=== PATIENT | male | born 1950 | race Caucasian/White ===

== ENCOUNTER 2018-07-13 23:34 | Observation (INO) | payer MEDICARE ==
[~2018-07-13] VITALS: Ht 170.2 cm; Wt 103.7 kg
[2018-07-14 00:18] LABS: BASOPHILS ABSOLUTE AUTO 0.07 K/mm3 (0.00-0.23); BASOPHILS PERCENT AUTO 0 % (0-2); EOSINOPHILS ABSOLUTE AUTO 0.28 K/mm3 (0.00-0.68); EOSINOPHILS PERCENT AUTO 2 % (0-6); Hematocrit 45.4 % (37.0-53.0); Hemoglobin 14.4 g/dL (13.5-17.5); IMMATURE GRAN ABSOLUTE AUTO 0.06 K/mm3 (0.00-0.10); IMMATURE GRAN PERCENT AUTO 0 % (0-1); LYMPHOCYTES PERCENT AUTO 16 % (21-46); MONOCYTES ABSOLUTE AUTO 1.37 K/mm3 (0.16-1.47); MONOCYTES PERCENT AUTO 8 % (4-13); Mean Corpuscular HGB 29.8 pg (26.0-34.0); Mean Corpuscular HGB Conc 31.7 g/dL (31.5-36.5); Mean Corpuscular Volume 94 fL (80-100); Mean Platelet Volume 9.4 fL (9.1-12.4); NEUTROPHILS ABSOLUTE AUTO 12.01 K/mm3 (1.96-9.15); NEUTROPHILS PERCENT AUTO 73 % (41-73); Platelet Count 380 K/mm3 (150-400); RDW Coefficient Variation 13.3 % (11.7-14.2); RDW Standard Deviation 46.2 fL (35.1-46.3); Red Blood Cell Count 4.83 M/mm3 (4.30-5.90); White Blood Cell Count 16.49 K/mm3 (4.00-11.30)
[2018-07-14 00:45] LABS: Alanine Aminotransfer (ALT/SGP 25 U/L (12-78); Albumin, Blood 3.3 g/dL (3.4-5.0); Albumin/Globulin Ratio 0.8 (0.8-1.8); Alk Phos 88 U/L (50-136); Anion Gap 10 mmol/L (6-16); Aspartate Aminotrans (AST/SGOT 18 U/L (12-37); Bilirubin, Total 0.5 mg/dL (0.1-1.0); Blood Urea Nitrogen 15 mg/dL (8-24); Bun/Creatinine Ratio 18.7 (12.0-20.0); CO2, Blood 25 mmol/L (21-32); Calcium, Blood 8.8 mg/dL (8.5-10.1); Chloride, Blood 101 mmol/L (98-108); Globulin, Blood 4.4 g/dL (2.2-4.0); Glomerular Filtration Rate >60 (60-); Glucose, Blood 116 mg/dL (70-99); Potassium, Blood 3.3 mmol/L (3.5-5.5); Sodium, Blood 136 mmol/L (136-145); Total Protein, Blood 7.7 g/dL (6.4-8.2)
[2018-07-14 01:02] LABS: Source, Urine Clean Catch
[2018-07-14 01:08] LABS: Bilirubin, Urine Neg (Neg); Blood, Urine 3+ (Neg); Glucose Qualitative, Urine Neg (Neg); Ketones, Urine Neg (Neg); Leukocyte Esterase, Urine Neg (Neg); Nitrite, Urine Neg (Neg); Protein, Urine Neg (Neg); Urobilinogen, Urine NORM (Normal)
[2018-07-14 01:12] LABS: Appearance, Urine Clear (Clear); Color, Urine Yellow (P-Yellow)
[2018-07-14 01:17] LABS: Bacteria Rare /hpf; Mucus Light (0-Heavy); Red Blood Cells, Urine 0-2 /hpf (0-2); Squamous Epithelial Cells Not Seen /hpf (Few); White Blood Cells, Urine Not Seen /hpf (0-5)
[2018-07-14] MEDS ORDERED: FURO20 PO (03:16)
[2018-07-14] MEDS ORDERED: Flovent 110 MCG12 GM INH (03:16)
[2018-07-14] MEDS ORDERED: OXYM.05NI (03:16)
[2018-07-14] MEDS ORDERED: DICL75ER PO (03:16)
[2018-07-14] MEDS ORDERED: MONT10T PO (03:17)
[2018-07-14] MEDS ORDERED: ADVAIR HFA (03:17)
[2018-07-14] MEDS ORDERED: ASPI81CH PO (03:17)
[2018-07-14] MEDS ORDERED: ZYRTEC10 M1 PO (03:18)
[2018-07-14] MEDS ORDERED: METO50 PO (03:18)
[2018-07-14] MEDS ORDERED: FLUT1DIS5 INH (04:33)
--- NOTE | 2018-07-14 07:10 | NUR ---
SHIFT SUMMARY PATIENT ADMITTED EARLIER THIS SHIFT FROM THE ER. PATIENT ABLE TO TRANSFER FROM THE GURNEY TO THE BED WITH ONE PERSON ASSIST. PATIENT PLEASENT AND COOPERATIVE. PATIENT MEDICATED FOR LOWER ABD PAIN PER EMAR. PATIENT SETTLED IN AND ORIENTED TO THE UNIT, ROOM, AND CALL LIGHT. PATIENT APPEARED TO SLEEP WELL AFTER ADMIT COMPLETED. FLUIDS RUNNING PER EMAR. REPORT GIVEN TO ONCOMING RN.
--- NOTE | 2018-07-14 09:51 | NUR ---
PT GONE TO OR @ APPROX 0915 THIS MORNING.
--- NOTE | 2018-07-14 10:54 | NUR ---
07/14/18 1054 Lynn Philippe PT ON SCHEDULED ANTIBIOTICS AND RECIEVED SCHEDULED. PT REPORTS HAVING A RECENT FIXATION TO HIS LEFT SHOULDER. HE HAS AN IMMOBILIZER IN PLACE. THIS WAS REMOVED AND ARM WAS POSISTIONED BY THIS RN WITH GEL PADS AND IN AN UPWARD POSISTION WITH LEFT HAND RESTING ON HIM. DR PATE AWARE AND WILL ATTEMPT TO NOT LEAN ON ARM.
--- NOTE | 2018-07-14 12:00 | NUR ---
PT BROUGHT BACK TO PCU RM 15 FROM THE OR @ 1200. PT RETURNED FROM OR W/ 3 GAUZE DRESSINGS ON ABD THAT ARE C/D/I. VSS. PT DROWSY, BUT A&O X4. SPO2 > 92% ON RA. PT DENYING PAIN OR NAUSEA. WILL CONTINUE TO MONITOR AND PROVIDE CARE.
[2018-07-15 04:15] LABS: BASOPHILS ABSOLUTE AUTO 0.03 K/mm3 (0.00-0.23); BASOPHILS PERCENT AUTO 0 % (0-2); EOSINOPHILS ABSOLUTE AUTO 0.01 K/mm3 (0.00-0.68); EOSINOPHILS PERCENT AUTO 0 % (0-6); Hematocrit 40.5 % (37.0-53.0); Hemoglobin 12.8 g/dL (13.5-17.5); IMMATURE GRAN ABSOLUTE AUTO 0.05 K/mm3 (0.00-0.10); IMMATURE GRAN PERCENT AUTO 0 % (0-1); LYMPHOCYTES ABSOLUTE AUTO 2.22 K/mm3 (0.84-5.20); LYMPHOCYTES PERCENT AUTO 15 % (21-46); MONOCYTES ABSOLUTE AUTO 1.45 K/mm3 (0.16-1.47); MONOCYTES PERCENT AUTO 10 % (4-13); Mean Corpuscular HGB 29.6 pg (26.0-34.0); Mean Corpuscular HGB Conc 31.6 g/dL (31.5-36.5); Mean Corpuscular Volume 94 fL (80-100); Mean Platelet Volume 9.6 fL (9.1-12.4); NEUTROPHILS ABSOLUTE AUTO 11.24 K/mm3 (1.96-9.15); NEUTROPHILS PERCENT AUTO 75 % (41-73); Platelet Count 303 K/mm3 (150-400); RDW Coefficient Variation 13.7 % (11.7-14.2); RDW Standard Deviation 46.7 fL (35.1-46.3); Red Blood Cell Count 4.32 M/mm3 (4.30-5.90)
[2018-07-15 04:40] LABS: Anion Gap 7 mmol/L (6-16); Blood Urea Nitrogen 16 mg/dL (8-24); Bun/Creatinine Ratio 19.6 (12.0-20.0); CO2, Blood 25 mmol/L (21-32); Calcium, Blood 8.2 mg/dL (8.5-10.1); Chloride, Blood 109 mmol/L (98-108); Creatinine, Blood 0.82 mg/dL (0.60-1.20); Glomerular Filtration Rate >60 (60-); Glucose, Blood 112 mg/dL (70-99); Potassium, Blood 4.2 mmol/L (3.5-5.5); Sodium, Blood 141 mmol/L (136-145)
--- NOTE | 2018-07-15 06:19 | NUR ---
SHIFT SUMMARY PT ALERT AND ORIENTED. VS STABLE. PT COMPLAINS OF ABD PAIN THAT IS RELIEVED AFTER MEDICATION ADMINISTRATION. SURGICAL SITE COVERED WITH GAUZE C/D/I. SHOULDER PLACED IN IMOBILIZER DUE TO PREVIOUS ROTATOR CUFF SURGERY. PT RESTED MOST OF SHIFT. PT HAD ONE SMALL BM THIS SHIFT. NO CHANGES SINCE INITIAL ASSESSMENT. CALL LIGHT IN REACH. WILL CONTINUE TO MONITOR AND REPORT TO ONCOMING RN.
[2018-07-15] MEDS ORDERED: ALBU90OI61 INH (08:33)
[2018-07-15] MEDS ORDERED: OXYCODONE HCL E10 MG PO (14:22)
--- NOTE | 2018-07-15 14:45 | NUR ---
DISCHARGE NOTE PT STABLE FOR DISCHARGE. IV X2 REMOVED. DISCHARGE INSTRUCTIONS AND DISCHARGE MEDICATIONS REVIEWED WITH PT. PT VERBALIZES UNDERSTANDING AND DENIES QUESTIONS. HOME MEDICATIONS RETURNED TO PT FROM PHARMACY. 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
== END 2018-07-15 14:45 | disposition home or self-care (01) ==
LOC: ER 23:34 → PCU 23:35 → ER 07-14 03:33 → PCU 07-14 03:33
PROVIDERS: Emergency Medicine; Internal Medicine; Surgery; ADMIT Family Medicine
PROC: 0DTJ4ZZ Resection of Appendix, Percutaneous Endoscopic Approach (ICD-10-PCS; principal; 2018-07-14 11:30)
DX: K35.80 Unspecified acute appendicitis (principal); A41.9 Sepsis, unspecified organism; K40.20 Bilateral inguinal hernia, without obstruction or gangrene, not specified as recurrent; K42.9 Umbilical hernia without obstruction or gangrene; I48.91 Unspecified atrial fibrillation; E87.6 Hypokalemia; I10 Essential (primary) hypertension; E66.9 Obesity, unspecified; Z88.2 Allergy status to sulfonamides; Z79.82 Long term (current) use of aspirin; Z79.899 Other long term (current) drug therapy; Z87.891 Personal history of nicotine dependence; Z68.38 Body mass index [BMI] 38.0-38.9, adult
CPT/HCPCS: 36415; 74177; 80048; 80053; 81001; 82947; 83605; 83690; 83735; 84145; 85025; 87040; 88304; 93005; 93010; 94640; 94760; 96361; 96365; 96375; 99285-25; G0378; J0696; J1100; J1885; J2250; J2270; J2405; J2710; J3010; J3480; J7030; J7120; Q9967